=== PATIENT | male | born 1940 | race Caucasian/White ===

== ENCOUNTER 2017-07-21 11:21 | Inpatient (IN) | payer MEDICARE ==
[~2017-07-21] VITALS: Ht 188 cm; Wt 97.7 kg
[~2017-07-21 11:21] MED LIST: ALBU18HF2 IH; ASPI-1265 PO; BISA-77 PO; BUDE10.23 IH; CA C1TAB58 PO; MAG400T PO; METF500T3 PO; MULT-785 PO; NORCO10T PO; PREG75CA30 PO; TIOT18CA7 IH; VITC500T PO; [UNRECOGNIZED DRUG - CODE] PO
[2017-07-21 11:50] LABS: BASOPHILS % (AUTO) 0.3 % (0-1); EOSINOPHILS % (AUTO) 0 % (0-6); HEMATOCRIT 50.4 % (42.0-52.0); HEMOGLOBIN 16.5 g/dl (14.0-17.9); LYMPHOCYTES # (AUTO) 0.9 X10'3 (1.1-4.8); LYMPHOCYTES % (AUTO) 9.6 % (21-51); MEAN CORPUSCULAR HEMOGLOBIN 30.4 PG (27.0-31.0); MEAN CORPUSCULAR HGB CONC 32.7 % (33.0-36.5); MEAN CORPUSCULAR VOLUME 93.1 FL (78-98); MEAN PLATELET VOLUME 8.6 FL (7.4-10.4); MONOCYTES # (AUTO) 1.3 X10'3 (0-0.9); MONOCYTES % (AUTO) 13.6 % (2-12); NEUTROPHILS # (AUTO) 7.3 X10'3 (1.8-7.7); NEUTROPHILS % (AUTO) 76.5 % (42-75); PLATELET COUNT 214 X10'3 (140-440); RED BLOOD COUNT 5.42 X10'6 (4.70-6.10); RED CELL DISTRIBUTION WIDTH 13.7 % (11.5-14.5); WHITE BLOOD COUNT 9.5 X10'3 (4.5-11.0)
[2017-07-21 12:00] LABS: INR 1.2 INR; PARTIAL THROMBOPLASTIN TIME 41 SECONDS (22-32); PROTHROMBIN TIME 11.9 SECONDS (9.0-12.0)
[2017-07-21 12:04] LABS: ALANINE AMINOTRANSFERASE 26 U/L (12-78); ALBUMIN 3.2 G/DL (3.4-5.0); ALBUMIN/GLOBULIN RATIO 0.7 (1.1-1.5); ALKALINE PHOSPHATASE 81 IU/L (46-116); ANION GAP 10 (8-16); ASPARTATE AMINO TRANSFERASE 26 U/L (10-37); BILIRUBIN,TOTAL 0.5 MG/DL (0.1-1.0); BLOOD UREA NITROGEN 24 MG/DL (7-18); BUN/CREATININE RATIO 17.9 (5.4-32.0); CALCIUM 8.9 MG/DL (8.5-10.1); CHLORIDE 101 MMOL/L (99-107); CREATININE 1.34 MG/DL (0.60-1.10); GLUCOSE 124 MG/DL (70-104); POTASSIUM 4.2 MMOL/L (3.5-5.1); SODIUM 139 MMOL/L (135-145); TOTAL CARBON DIOXIDE 27.8 MMOL/L (24-32); TOTAL PROTEIN 7.7 G/DL (6.4-8.2); eGFR 52 ML/MIN
[2017-07-21] MEDS ORDERED: dexamethasone sod phosphate 10mg/ml inj IV STA (12:19)
[2017-07-21] MEDS ORDERED: ipratropium/albuterol 3ml nebule NEB ONE (12:20)
[2017-07-21] MEDS ORDERED: CefTRIAXone 2gm/NS 100ml IVPB 100 ML IV ONE (12:40)
[2017-07-21] MEDS ORDERED: normal saline 1000ML IV soln IV ONE (12:40)
[2017-07-21] MEDS ORDERED: azithromycin 250mg tablet PO ONE (12:40)
[2017-07-21 12:55] LABS: ABG PH (T) 7.403 (7.350-7.450); ALLEN'S TEST Positive; FLOW 5 L/min; PATIENT TEMPERATURE 37.6
[2017-07-21 12:56] LABS: ABG BASE EXCESS 3.3 mmol/L (-2.0-3.0); ABG HCO3 28.8 mmol/L (22.0-26.0); ABG OXYGEN SATURATION 96.7 % (95-98); ABG PCO2 (T) 47.4 mmHg (35.0-48.0); ABG PO2 (T) 90.6 mmHg (83-108); FCOHb 1.1 % (0.5-1.5); FMetHb 0.2 % (0.3-1.12); FO2Hb 95.4 % (94-100); TOTAL HEMOGLOBIN 16.8 G/dl (14.0-18.0)
[2017-07-21] MEDS ORDERED: HYDROcodone/acetaminophen 10/325mg tab PO ONE (15:00)
[2017-07-21] MEDS: normal saline 1000ml 1,000 ML IV SCH (15:12)
[2017-07-21] MEDS ORDERED: potassium Cl 20 mEq SR tablet PO PRN ×2 (15:15)
[2017-07-21] MEDS ORDERED: magnesium Cl slow-release 64mg tablet PO PRN (15:15)
[2017-07-21] MEDS ORDERED: magnesium 2GM in 50ml NS 50 ML IV PRN (15:15)
[2017-07-21] MEDS ORDERED: potassium Cl 40MEQ/NS 500ml 500 ML IV PRN ×2 (15:15)
[2017-07-21] MEDS ORDERED: magnesium hydroxide 30ml (MOM) UD suspension PO PRN (15:15)
[2017-07-21] MEDS ORDERED: acetaminophen 325mg tablet PO PRN ×2 (15:15)
[2017-07-21] MEDS ORDERED: ondansetron/PF 4mg/2ml inj IV PRN (15:15)
[2017-07-21] MEDS ORDERED: mag hydrox/Alum hydrox/simeth 30ml oral suspension PO PRN (15:15)
[2017-07-21] MEDS ORDERED: HYDROcodone/acetaminophen 5mg/325mg tablet PO PRN (15:15)
[2017-07-21] MEDS ORDERED: magnesium 4gm in 100ml NS 100 ML IV PRN (15:15)
[2017-07-21] MEDS ORDERED: HYDROcodone/acetaminophen 10/325mg tab PO PRN (15:20)
[2017-07-21] MEDS ORDERED: non-formulary drug (Albuterol Sulfate (Ventolin Hfa) 2 PUFFS) IH PRN (15:20)
[2017-07-21] MEDS ORDERED: albuterol 2.5 MG/3 ML nebule NEB PRN (15:35)
[2017-07-21 15:37] LABS: MAGNESIUM 2.1 MG/DL (1.5-2.4)
[2017-07-21] MEDS ORDERED: heparin 10,000 units/1 ML INJ IV ONE (15:50)
[2017-07-21] MEDS ORDERED: iohexol 350MG/ML 100ml bottle IV ONE (15:52)
[2017-07-21] MEDS: metFORMIN 500mg tablet PO SCH (17:28)
[2017-07-21 18:00] VITALS: BP 124/59
[2017-07-21] MEDS ORDERED: non-formulary drug (Budesonide/Formoterol Fumarate (Symbicort 160-4.5 Mcg Inhaler) 2 PUFFS IH SCH (20:00)
[2017-07-21] MEDS: amitryptiline 50mg tablet PO SCH (20:25)
[2017-07-21] MEDS: methylPREDNISolone sod succ/PF 40mg inj. IV SCH (20:25)
[2017-07-21] MEDS: ascorbic acid 500mg tablet PO SCH (20:25)
[2017-07-21] MEDS: pregabalin 75mg capsule PO SCH (20:25)
[2017-07-21] MEDS ORDERED: METFORMIN HCL 1000 MG PO SCH (21:00)
[2017-07-21] MEDS: ipratropium 0.5 MG/2.5ML nebule IH SCH (21:08)
[2017-07-21 22:00] VITALS: BP 117/63
[2017-07-21] MEDS: ipratropium/albuterol 3ml nebule NEB SCH (23:37)
[2017-07-22] MEDS: methylPREDNISolone sod succ/PF 40mg inj. IV SCH ×4 (01:55→20:09)
[2017-07-22 02:00] VITALS: BP 111/61
[2017-07-22] MEDS: ipratropium 0.5 MG/2.5ML nebule IH SCH (02:55)
[2017-07-22] MEDS: ipratropium/albuterol 3ml nebule NEB SCH ×6 (02:55→22:35)
[2017-07-22] MEDS: normal saline 1000ml 1,000 ML IV SCH ×3 (03:48→21:12)
[2017-07-22 05:24] LABS: BASOPHILS % (AUTO) 0.1 % (0-1); EOSINOPHILS # (AUTO) 0.1 X10'3 (0-0.9); EOSINOPHILS % (AUTO) 1.2 % (0-6); HEMATOCRIT 44.2 % (42.0-52.0); HEMOGLOBIN 14.4 g/dl (14.0-17.9); LYMPHOCYTES # (AUTO) 0.8 X10'3 (1.1-4.8); LYMPHOCYTES % (AUTO) 10.1 % (21-51); MEAN CORPUSCULAR HEMOGLOBIN 30.6 PG (27.0-31.0); MEAN CORPUSCULAR HGB CONC 32.7 % (33.0-36.5); MEAN CORPUSCULAR VOLUME 93.8 FL (78-98); MEAN PLATELET VOLUME 8.9 FL (7.4-10.4); MONOCYTES # (AUTO) 0.2 X10'3 (0-0.9); MONOCYTES % (AUTO) 2.8 % (2-12); NEUTROPHILS # (AUTO) 6.7 X10'3 (1.8-7.7); NEUTROPHILS % (AUTO) 85.8 % (42-75); PLATELET COUNT 194 X10'3 (140-440); RED BLOOD COUNT 4.71 X10'6 (4.70-6.10); RED CELL DISTRIBUTION WIDTH 13.4 % (11.5-14.5); WHITE BLOOD COUNT 7.8 X10'3 (4.5-11.0)
[2017-07-22 05:38] LABS: ALBUMIN 2.5 G/DL (3.4-5.0); ANION GAP 7 (8-16); BLOOD UREA NITROGEN 23 MG/DL (7-18); BUN/CREATININE RATIO 24.5 (5.4-32.0); CALCIUM 8.2 MG/DL (8.5-10.1); CHLORIDE 105 MMOL/L (99-107); CREATININE 0.94 MG/DL (0.60-1.10); GLUCOSE 151 MG/DL (70-104); MAGNESIUM 2.2 MG/DL (1.5-2.4); POTASSIUM 4.5 MMOL/L (3.5-5.1); SODIUM 142 MMOL/L (135-145); TOTAL CARBON DIOXIDE 29.9 MMOL/L (24-32); eGFR 78 ML/MIN
[2017-07-22] MEDS ORDERED: FLU VACC QS2017-18 36MOS UP/PF 60 MCG/0.5 ML SYRINGE IMVAC ONE (06:15)
[2017-07-22] MEDS: fluticasone/vilanterol 200mcg/25mcg inhaler IH SCH (06:42)
[2017-07-22 07:00] VITALS: BP 116/69
[2017-07-22] MEDS: metFORMIN 500mg tablet PO SCH ×2 (07:49→17:24)
[2017-07-22] MEDS: calcium carbonate/vitamin D3 tablet PO SCH (07:49)
[2017-07-22] MEDS: multivitamins, therapeutics tablet PO SCH (07:49)
[2017-07-22] MEDS: aspirin 81mg tab.chew PO SCH (07:49)
[2017-07-22] MEDS: pregabalin 75mg capsule PO SCH ×3 (07:49→20:08)
[2017-07-22] MEDS: magnesium oxide 400mg tablet PO SCH (07:50)
[2017-07-22] MEDS: bisacodyl 5mg tablet.DR PO SCH (07:50)
[2017-07-22] MEDS: ascorbic acid 500mg tablet PO SCH ×3 (07:50→20:08)
[2017-07-22] MEDS: enoxaparin 40mg/0.4ml syringe SQ SCH (07:51)
[2017-07-22] MEDS: azithromycin/NS 500mg/250ml 250 ML IV SCH (07:52)
[2017-07-22] MEDS ORDERED: CA CITRATE PO SCH (08:00)
[2017-07-22] MEDS ORDERED: VIT D3 PO SCH (08:00)
[2017-07-22] MEDS ORDERED: MGOX PO SCH (08:00)
[2017-07-22] MEDS ORDERED: [UNRECOGNIZED DRUG - OTHER] PO SCH (08:00)
[2017-07-22] MEDS ORDERED: B6 PO SCH (08:00)
[2017-07-22] MEDS ORDERED: non-formulary drug (Tiotropium Bromide* (Spiriva*) 18 MCG) IH SCH (08:00)
[2017-07-22] MEDS: K and/or MAG REPLACEMENT MC SCH (08:00)
[2017-07-22] MEDS: levoFLOXACIN-Levaquin 750MG/D5 150 ML IV SCH (09:03)
[2017-07-22 11:00] VITALS: BP 96/50
[2017-07-22 15:00] VITALS: BP 115/65
[2017-07-22] MEDS: HYDROcodone/acetaminophen 10/325mg tab PO PRN ×2 (16:06→20:08)
[2017-07-22] MEDS ORDERED: dextrose ORAL solution 15 GM/59 ML bottle PO PRN ×2 (16:25)
[2017-07-22] MEDS ORDERED: MESSAGE TO PHARMACY PO ONE (16:25)
[2017-07-22] MEDS ORDERED: glucagon, human recombinant 1mg kit SUBCUT PRN (16:25)
[2017-07-22] MEDS ORDERED: dextrose 50%-water 50ml dispensing syringe IV PRN ×2 (16:25)
[2017-07-22] MEDS ORDERED: insulin Lispro (HumaLOG) vial - multi-dose SQ SCH (16:25)
[2017-07-22] MEDS: lactobacillus rhamnosus 10,000 MMU CELLS/CAPSULE PO SCH (17:10)
[2017-07-22 18:00] VITALS: BP 115/62
[2017-07-22] MEDS: amitryptiline 50mg tablet PO SCH (20:08)
[2017-07-22] MEDS: insulin glargine (Lantus) pen - multi-dose SQ SCH (20:16)
[2017-07-22 22:00] VITALS: BP 123/76
[2017-07-23] MEDS: temazepam 15mg capsule PO PRN ×2 (00:41→23:05)
[2017-07-23] MEDS: methylPREDNISolone sod succ/PF 40mg inj. IV SCH ×4 (01:56→20:32)
[2017-07-23 02:00] VITALS: BP 116/66
[2017-07-23] MEDS: ipratropium/albuterol 3ml nebule NEB SCH ×6 (03:11→23:54)
[2017-07-23 05:39] LABS: BASOPHILS % (AUTO) 0.1 % (0-1); EOSINOPHILS % (AUTO) 0 % (0-6); HEMATOCRIT 40.6 % (42.0-52.0); HEMOGLOBIN 13.3 g/dl (14.0-17.9); LYMPHOCYTES # (AUTO) 1.1 X10'3 (1.1-4.8); LYMPHOCYTES % (AUTO) 5.8 % (21-51); MEAN CORPUSCULAR HEMOGLOBIN 30.9 PG (27.0-31.0); MEAN CORPUSCULAR HGB CONC 32.8 % (33.0-36.5); MONOCYTES # (AUTO) 0.5 X10'3 (0-0.9); MONOCYTES % (AUTO) 2.5 % (2-12); NEUTROPHILS # (AUTO) 16.4 X10'3 (1.8-7.7); NEUTROPHILS % (AUTO) 91.6 % (42-75); PLATELET COUNT 199 X10'3 (140-440); RED BLOOD COUNT 4.32 X10'6 (4.70-6.10); RED CELL DISTRIBUTION WIDTH 13.4 % (11.5-14.5)
[2017-07-23] MEDS: normal saline 1000ml 1,000 ML IV SCH ×2 (05:48→17:27)
[2017-07-23 06:46] LABS: ALBUMIN 2.4 G/DL (3.4-5.0); ANION GAP 5 (8-16); BLOOD UREA NITROGEN 26 MG/DL (7-18); BUN/CREATININE RATIO 28.3 (5.4-32.0); CHLORIDE 107 MMOL/L (99-107); CREATININE 0.92 MG/DL (0.60-1.10); GLUCOSE 141 MG/DL (70-104); MAGNESIUM 2.1 MG/DL (1.5-2.4); POTASSIUM 4.4 MMOL/L (3.5-5.1); SODIUM 142 MMOL/L (135-145); TOTAL CARBON DIOXIDE 29.8 MMOL/L (24-32); eGFR 80 ML/MIN
[2017-07-23 07:00] VITALS: BP 119/67
[2017-07-23] MEDS: fluticasone/vilanterol 200mcg/25mcg inhaler IH SCH (07:09)
[2017-07-23] MEDS: ascorbic acid 500mg tablet PO SCH ×3 (07:23→20:33)
[2017-07-23] MEDS: metFORMIN 500mg tablet PO SCH ×2 (07:23→17:27)
[2017-07-23] MEDS: magnesium oxide 400mg tablet PO SCH (07:23)
[2017-07-23] MEDS: bisacodyl 5mg tablet.DR PO SCH (07:23)
[2017-07-23] MEDS: pregabalin 75mg capsule PO SCH ×3 (07:23→20:33)
[2017-07-23] MEDS: calcium carbonate/vitamin D3 tablet PO SCH (07:23)
[2017-07-23] MEDS: lactobacillus rhamnosus 10,000 MMU CELLS/CAPSULE PO SCH ×2 (07:23→17:30)
[2017-07-23] MEDS: multivitamins, therapeutics tablet PO SCH (07:23)
[2017-07-23] MEDS: aspirin 81mg tab.chew PO SCH (07:24)
[2017-07-23] MEDS: azithromycin/NS 500mg/250ml 250 ML IV SCH (07:25)
[2017-07-23] MEDS: levoFLOXACIN-Levaquin 750MG/D5 150 ML IV SCH ×3 (07:25→09:12)
[2017-07-23] MEDS: enoxaparin 40mg/0.4ml syringe SQ SCH (07:26)
[2017-07-23] MEDS: K and/or MAG REPLACEMENT MC SCH (08:00)
[2017-07-23 11:00] VITALS: BP 105/52
[2017-07-23] MEDS: HYDROcodone/acetaminophen 10/325mg tab PO PRN ×3 (11:10→20:33)
[2017-07-23 15:00] VITALS: BP 123/60
[2017-07-23 18:00] VITALS: BP 116/61
[2017-07-23] MEDS: amitryptiline 50mg tablet PO SCH (20:33)
[2017-07-23] MEDS: insulin glargine (Lantus) pen - multi-dose SQ SCH (21:00)
[2017-07-23 22:00] VITALS: BP 126/71
[2017-07-24 02:00] VITALS: BP 124/71
[2017-07-24] MEDS: ipratropium/albuterol 3ml nebule NEB SCH ×3 (02:42→10:51)
[2017-07-24] MEDS: normal saline 1000ml 1,000 ML IV SCH (04:17)
[2017-07-24] MEDS: HYDROcodone/acetaminophen 10/325mg tab PO PRN ×3 (04:47→15:26)
[2017-07-24 05:30] VITALS: BP 135/75
[2017-07-24 06:24] LABS: ALBUMIN 2.5 G/DL (3.4-5.0); ANION GAP 3 (8-16); BLOOD UREA NITROGEN 24 MG/DL (7-18); CHLORIDE 105 MMOL/L (99-107); CREATININE 0.89 MG/DL (0.60-1.10); GLUCOSE 123 MG/DL (70-104); MAGNESIUM 2.3 MG/DL (1.5-2.4); SODIUM 141 MMOL/L (135-145); TOTAL CARBON DIOXIDE 32.7 MMOL/L (24-32); eGFR 83 ML/MIN
[2017-07-24 06:25] LABS: BASOPHILS % (AUTO) 0 % (0-1); EOSINOPHILS # (AUTO) 0.1 X10'3 (0-0.9); EOSINOPHILS % (AUTO) 0.8 % (0-6); HEMATOCRIT 43.2 % (42.0-52.0); HEMOGLOBIN 14.1 g/dl (14.0-17.9); LYMPHOCYTES # (AUTO) 0.8 X10'3 (1.1-4.8); LYMPHOCYTES % (AUTO) 5.1 % (21-51); MEAN CORPUSCULAR HGB CONC 32.6 % (33.0-36.5); MEAN CORPUSCULAR VOLUME 94.9 FL (78-98); MEAN PLATELET VOLUME 9.2 FL (7.4-10.4); MONOCYTES # (AUTO) 0.3 X10'3 (0-0.9); MONOCYTES % (AUTO) 1.6 % (2-12); NEUTROPHILS # (AUTO) 14.7 X10'3 (1.8-7.7); NEUTROPHILS % (AUTO) 92.5 % (42-75); PLATELET COUNT 203 X10'3 (140-440); RED BLOOD COUNT 4.56 X10'6 (4.70-6.10); RED CELL DISTRIBUTION WIDTH 13.7 % (11.5-14.5); WHITE BLOOD COUNT 15.9 X10'3 (4.5-11.0)
[2017-07-24] MEDS: fluticasone/vilanterol 200mcg/25mcg inhaler IH SCH (07:26)
[2017-07-24] MEDS: metFORMIN 500mg tablet PO SCH (07:58)
[2017-07-24] MEDS: lactobacillus rhamnosus 10,000 MMU CELLS/CAPSULE PO SCH (07:58)
[2017-07-24] MEDS: azithromycin/NS 500mg/250ml 250 ML IV SCH (07:58)
[2017-07-24] MEDS: bisacodyl 5mg tablet.DR PO SCH (07:59)
[2017-07-24] MEDS: aspirin 81mg tab.chew PO SCH (07:59)
[2017-07-24] MEDS: multivitamins, therapeutics tablet PO SCH (08:00)
[2017-07-24] MEDS: pregabalin 75mg capsule PO SCH ×2 (08:00→13:14)
[2017-07-24] MEDS: magnesium oxide 400mg tablet PO SCH (08:00)
[2017-07-24] MEDS: calcium carbonate/vitamin D3 tablet PO SCH (08:00)
[2017-07-24] MEDS: K and/or MAG REPLACEMENT MC SCH (08:00)
[2017-07-24] MEDS: ascorbic acid 500mg tablet PO SCH ×2 (08:01→13:14)
[2017-07-24] MEDS: enoxaparin 40mg/0.4ml syringe SQ SCH (08:03)
[2017-07-24] MEDS ORDERED: predniSONE 20 mg tablet PO SCH (08:30)
[2017-07-24] MEDS: levoFLOXACIN-Levaquin 750MG/D5 150 ML IV SCH ×2 (10:18→10:25)
[2017-07-24 11:00] VITALS: BP 115/58
[2017-07-24 15:00] VITALS: BP 137/72
[2017-07-24] MEDS ORDERED: LEVO750T21 PO (15:20)
[2017-07-24] MEDS ORDERED: PRED20TA PO (15:20)
[2017-07-24] MEDS ORDERED: AZIT500T5 PO (15:20)
== END 2017-07-24 16:55 | disposition home or self-care (01) | DRG 193 ==
LOC: ER 11:22 → ED HOLD 15:12 → PCU 3S 18:00
PROVIDERS: ADMIT Family Medicine; ATTEND Family Medicine
DX: J18.9 Pneumonia, unspecified organism (principal); J96.90 Respiratory failure, unspecified, unspecified whether with hypoxia or hypercapnia; J44.1 Chronic obstructive pulmonary disease with (acute) exacerbation; J44.0 Chronic obstructive pulmonary disease with (acute) lower respiratory infection; E11.9 Type 2 diabetes mellitus without complications; K80.20 Calculus of gallbladder without cholecystitis without obstruction; M54.9 Dorsalgia, unspecified; R91.1 Solitary pulmonary nodule; G89.29 Other chronic pain; N28.9 Disorder of kidney and ureter, unspecified; F17.210 Nicotine dependence, cigarettes, uncomplicated; Z90.49 Acquired absence of other specified parts of digestive tract; Z99.81 Dependence on supplemental oxygen; Z79.84 Long term (current) use of oral hypoglycemic drugs; Z79.51 Long term (current) use of inhaled steroids; Z79.899 Other long term (current) drug therapy; Z79.82 Long term (current) use of aspirin; Z88.0 Allergy status to penicillin; Z88.8 Allergy status to other drugs, medicaments and biological substances; Z91.81 History of falling
CPT/HCPCS: 36415; 36600; 71275; 80048; 80053; 82803; 82948; 83036; 83605; 83735; 83880; 84145; 84484; 85018; 85025; 85379; 85610; 85730; 87040; 87070; 87077; 87185; 93005; 94640; 94760; 96365; 96366; 96375; 97110; 97116; 97162; 97530; 99291; J0456; J0696; J1100; J1644; J1650; J1815; J1956; J2405; J2920; J7030; J7512; Q2037; Q9967

== ENCOUNTER 2017-11-22 21:15 | Inpatient (IN) | payer MEDICARE ==
[~2017-11-22] VITALS: Ht 188 cm; Wt 104.5 kg
[~2017-11-22 21:15] MED LIST changes: +AZIT500T5 PO
[2017-11-22] MEDS ORDERED: azithromycin/NS 500mg/250ml 250 ML IV ONE (21:30)
[2017-11-22] MEDS ORDERED: methylPREDNISolone sod succ 125mg/2ml vial IV ONE (21:30)
[2017-11-22] MEDS ORDERED: albuterol 2.5 MG/3 ML nebule CONTNEB PRN (21:30)
[2017-11-22 22:06] LABS: ABG HCO3 28.1 mmol/L (22.0-26.0); ABG OXYGEN SATURATION 90.3 % (95-98); ABG PCO2 (T) 49.4 mmHg (35.0-48.0); ABG PH (T) 7.383 (7.350-7.450); ABG PO2 (T) 69.4 mmHg (83-108); ALLEN'S TEST Positive; FLOW 3 L/min; FMetHb 0.1 % (0.3-1.12); FO2Hb 89.3 % (94-100); PATIENT TEMPERATURE 39.3; TOTAL HEMOGLOBIN 15.4 G/dl (14.0-18.0)
[2017-11-22 22:23] LABS: BASOPHILS % (AUTO) 0.2 % (0-1); EOSINOPHILS # (AUTO) 0.2 X10'3 (0-0.9); HEMATOCRIT 45.7 % (42.0-52.0); HEMOGLOBIN 15.4 g/dl (14.0-17.9); LYMPHOCYTES # (AUTO) 1.3 X10'3 (1.1-4.8); LYMPHOCYTES % (AUTO) 7.3 % (21-51); MEAN CORPUSCULAR HEMOGLOBIN 31.1 PG (27.0-31.0); MEAN CORPUSCULAR HGB CONC 33.6 % (33.0-36.5); MEAN CORPUSCULAR VOLUME 92.8 FL (78-98); MEAN PLATELET VOLUME 8.5 FL (7.4-10.4); MONOCYTES % (AUTO) 5.8 % (2-12); NEUTROPHILS # (AUTO) 14.8 X10'3 (1.8-7.7); NEUTROPHILS % (AUTO) 85.7 % (42-75); PLATELET COUNT 225 X10'3 (140-440); RED BLOOD COUNT 4.93 X10'6 (4.70-6.10); RED CELL DISTRIBUTION WIDTH 14.1 % (11.5-14.5); WHITE BLOOD COUNT 17.3 X10'3 (4.5-11.0)
[2017-11-22 22:41] LABS: ALANINE AMINOTRANSFERASE 33 U/L (12-78); ALBUMIN 3.7 G/DL (3.4-5.0); ALBUMIN/GLOBULIN RATIO 0.9 (1.1-1.5); ALKALINE PHOSPHATASE 74 IU/L (46-116); ANION GAP 7 (8-16); ASPARTATE AMINO TRANSFERASE 18 U/L (10-37); BILIRUBIN,TOTAL 0.6 MG/DL (0.1-1.0); BLOOD UREA NITROGEN 15 MG/DL (7-18); BUN/CREATININE RATIO 12.2 (5.4-32.0); CALCIUM 9.1 MG/DL (8.5-10.1); CHLORIDE 103 MMOL/L (99-107); CREATININE 1.23 MG/DL (0.60-1.10); GLUCOSE 113 MG/DL (70-104); POTASSIUM 4.5 MMOL/L (3.5-5.1); SODIUM 141 MMOL/L (135-145); TOTAL CARBON DIOXIDE 30.6 MMOL/L (24-32); TOTAL PROTEIN 7.6 G/DL (6.4-8.2); eGFR 57 ML/MIN
[2017-11-22 22:45] LABS: MAGNESIUM 1.9 MG/DL (1.5-2.4)
[2017-11-22] MEDS ORDERED: CefTRIAXone/D5W-Rocephin 1gm 50 ML IV ONE (23:10)
[2017-11-22] MEDS ORDERED: ALBU90AE (23:41)
[2017-11-23] VITALS (7 sets, daily range): BP systolic 113–150; BP diastolic 58–81
[2017-11-23] MEDS ORDERED: HYDROcodone/acetaminophen 10/325mg tab PO ONE
[2017-11-23] MEDS ORDERED: magnesium 2GM in 50ml NS 50 ML IV PRN (00:15)
[2017-11-23] MEDS ORDERED: potassium Cl 40MEQ/NS 500ml 500 ML IV PRN ×2 (00:15)
[2017-11-23] MEDS ORDERED: magnesium 4gm in 100ml NS 100 ML IV PRN (00:15)
[2017-11-23] MEDS ORDERED: magnesium Cl slow-release 64mg tablet PO PRN (00:15)
[2017-11-23] MEDS ORDERED: HYDROcodone/acetaminophen 5mg/325mg tablet PO PRN (00:15)
[2017-11-23] MEDS ORDERED: potassium Cl 20 mEq SR tablet PO PRN ×2 (00:15)
[2017-11-23] MEDS ORDERED: mag hydrox/Alum hydrox/simeth 30ml oral suspension PO PRN (00:15)
[2017-11-23] MEDS ORDERED: magnesium hydroxide 30ml (MOM) UD suspension PO PRN (00:15)
[2017-11-23] MEDS ORDERED: acetaminophen 325mg tablet PO PRN (00:15)
[2017-11-23] MEDS ORDERED: methylPREDNISolone sod succ 125mg/2ml vial IV SCH (02:00)
[2017-11-23] MEDS: albuterol 2.5 MG/3 ML nebule NEB PRN ×2 (03:33→08:06)
[2017-11-23] MEDS: HYDROcodone/acetaminophen 10/325mg tab PO PRN ×4 (05:56→19:32)
[2017-11-23] MEDS: K and/or MAG REPLACEMENT MC SCH (08:00)
[2017-11-23] MEDS: azithromycin 250mg tablet PO SCH (08:12)
[2017-11-23] MEDS: lactobacillus rhamnosus 10,000 MMU CELLS/CAPSULE PO SCH ×2 (08:12→19:30)
[2017-11-23] MEDS: enoxaparin 40mg/0.4ml syringe SUBCUT SCH (08:13)
[2017-11-23] MEDS: CefTRIAXone/D5W-Rocephin 1gm 50 ML IV SCH (08:14)
[2017-11-23 08:21] LABS: BASOPHILS % (AUTO) 0.1 % (0-1); EOSINOPHILS # (AUTO) 0.1 X10'3 (0-0.9); EOSINOPHILS % (AUTO) 0.9 % (0-6); HEMATOCRIT 45.1 % (42.0-52.0); HEMOGLOBIN 15.1 g/dl (14.0-17.9); LYMPHOCYTES # (AUTO) 0.9 X10'3 (1.1-4.8); LYMPHOCYTES % (AUTO) 6.1 % (21-51); MEAN CORPUSCULAR HEMOGLOBIN 31.4 PG (27.0-31.0); MEAN CORPUSCULAR HGB CONC 33.6 % (33.0-36.5); MEAN CORPUSCULAR VOLUME 93.5 FL (78-98); MEAN PLATELET VOLUME 8.5 FL (7.4-10.4); MONOCYTES # (AUTO) 0.1 X10'3 (0-0.9); MONOCYTES % (AUTO) 0.4 % (2-12); NEUTROPHILS # (AUTO) 14.2 X10'3 (1.8-7.7); NEUTROPHILS % (AUTO) 92.5 % (42-75); PLATELET COUNT 229 X10'3 (140-440); RED BLOOD COUNT 4.82 X10'6 (4.70-6.10); WHITE BLOOD COUNT 15.3 X10'3 (4.5-11.0)
[2017-11-23 08:26] LABS: ALBUMIN 3.5 G/DL (3.4-5.0); ANION GAP 7 (8-16); BLOOD UREA NITROGEN 18 MG/DL (7-18); CALCIUM 9.2 MG/DL (8.5-10.1); CHLORIDE 103 MMOL/L (99-107); GLUCOSE 161 MG/DL (70-104); POTASSIUM 4.3 MMOL/L (3.5-5.1); SODIUM 142 MMOL/L (135-145); TOTAL CARBON DIOXIDE 31.8 MMOL/L (24-32); eGFR 59 ML/MIN
[2017-11-23] MEDS: ipratropium/albuterol 3ml nebule NEB SCH ×4 (11:03→22:49)
[2017-11-23] MEDS: guaiFENesin 200 MG/10 ML oral syrup UD cup PO SCH ×2 (14:46→19:30)
[2017-11-23] MEDS: methylPREDNISolone sod succ 125mg/2ml vial IV SCH (16:37)
[2017-11-24] MEDS: methylPREDNISolone sod succ 125mg/2ml vial IV SCH ×3 (00:05→20:09)
[2017-11-24] MEDS: guaiFENesin 200 MG/10 ML oral syrup UD cup PO SCH ×4 (02:00→20:00)
[2017-11-24 03:00] VITALS: BP 149/78
[2017-11-24] MEDS: ipratropium/albuterol 3ml nebule NEB SCH ×6 (03:36→23:15)
[2017-11-24] MEDS: HYDROcodone/acetaminophen 10/325mg tab PO PRN ×2 (05:00→17:36)
[2017-11-24 05:11] LABS: BASOPHILS % (AUTO) 0.1 % (0-1); EOSINOPHILS # (AUTO) 0.1 X10'3 (0-0.9); EOSINOPHILS % (AUTO) 0.7 % (0-6); HEMATOCRIT 43.3 % (42.0-52.0); HEMOGLOBIN 14.3 g/dl (14.0-17.9); LYMPHOCYTES # (AUTO) 0.9 X10'3 (1.1-4.8); LYMPHOCYTES % (AUTO) 4.2 % (21-51); MEAN CORPUSCULAR HEMOGLOBIN 31.1 PG (27.0-31.0); MEAN CORPUSCULAR HGB CONC 33.1 % (33.0-36.5); MEAN CORPUSCULAR VOLUME 94.2 FL (78-98); MEAN PLATELET VOLUME 8.7 FL (7.4-10.4); MONOCYTES # (AUTO) 0.3 X10'3 (0-0.9); MONOCYTES % (AUTO) 1.2 % (2-12); NEUTROPHILS # (AUTO) 19.3 X10'3 (1.8-7.7); NEUTROPHILS % (AUTO) 93.8 % (42-75); PLATELET COUNT 228 X10'3 (140-440); RED BLOOD COUNT 4.59 X10'6 (4.70-6.10); RED CELL DISTRIBUTION WIDTH 14.2 % (11.5-14.5); WHITE BLOOD COUNT 20.6 X10'3 (4.5-11.0)
[2017-11-24 05:30] LABS: ALANINE AMINOTRANSFERASE 25 U/L (12-78); ALBUMIN/GLOBULIN RATIO 0.8 (1.1-1.5); ALKALINE PHOSPHATASE 69 IU/L (46-116); ANION GAP 8 (8-16); ASPARTATE AMINO TRANSFERASE 13 U/L (10-37); BILIRUBIN,TOTAL 0.3 MG/DL (0.1-1.0); BLOOD UREA NITROGEN 27 MG/DL (7-18); BUN/CREATININE RATIO 25.2 (5.4-32.0); CALCIUM 9.2 MG/DL (8.5-10.1); CHLORIDE 106 MMOL/L (99-107); CREATININE 1.07 MG/DL (0.60-1.10); GLUCOSE 180 MG/DL (70-104); MAGNESIUM 2.4 MG/DL (1.5-2.4); PHOSPHORUS 2.5 MG/DL (2.3-4.5); SODIUM 143 MMOL/L (135-145); TOTAL CARBON DIOXIDE 29.3 MMOL/L (24-32); TOTAL PROTEIN 6.8 G/DL (6.4-8.2); eGFR 67 ML/MIN
[2017-11-24 07:00] VITALS: BP 147/67
[2017-11-24] MEDS: azithromycin 250mg tablet PO SCH (07:34)
[2017-11-24] MEDS: lactobacillus rhamnosus 10,000 MMU CELLS/CAPSULE PO SCH ×2 (07:34→20:00)
[2017-11-24] MEDS: CefTRIAXone/D5W-Rocephin 1gm 50 ML IV SCH (07:35)
[2017-11-24] MEDS: enoxaparin 40mg/0.4ml syringe SUBCUT SCH (07:35)
[2017-11-24] MEDS: K and/or MAG REPLACEMENT MC SCH (08:00)
[2017-11-24] MEDS: pantoprazole 40mg Tablet.DR PO SCH (08:00)
[2017-11-24 11:00] VITALS: BP 142/64
[2017-11-24] MEDS: ondansetron/PF 4mg/2ml inj IV PRN ×2 (12:14→18:58)
[2017-11-24] MEDS ORDERED: metoclopramide 5 mg/ml inj IV ONE (14:45)
[2017-11-24 15:00] VITALS: BP 133/64
[2017-11-24 19:00] VITALS: BP 153/82
[2017-11-24] MEDS ORDERED: ondansetron/PF 4mg/2ml inj IM ONE (20:00)
[2017-11-24] MEDS: metoclopramide 5 mg/ml inj IV PRN (20:58)
[2017-11-24 22:00] VITALS: BP 158/80
[2017-11-25] MEDS: guaiFENesin 200 MG/10 ML oral syrup UD cup PO SCH ×3 (01:50→14:02)
[2017-11-25 02:00] VITALS: BP 176/89
[2017-11-25] MEDS: ipratropium/albuterol 3ml nebule NEB SCH ×3 (03:00→11:52)
[2017-11-25] MEDS: metoclopramide 5 mg/ml inj IV PRN (03:26)
[2017-11-25 05:18] LABS: BASOPHILS % (AUTO) 0 % (0-1); EOSINOPHILS % (AUTO) 0.1 % (0-6); HEMATOCRIT 42.3 % (42.0-52.0); HEMOGLOBIN 14.1 g/dl (14.0-17.9); LYMPHOCYTES # (AUTO) 0.7 X10'3 (1.1-4.8); LYMPHOCYTES % (AUTO) 3.7 % (21-51); MEAN CORPUSCULAR HEMOGLOBIN 31.5 PG (27.0-31.0); MEAN CORPUSCULAR HGB CONC 33.2 % (33.0-36.5); MEAN CORPUSCULAR VOLUME 94.7 FL (78-98); MEAN PLATELET VOLUME 9.2 FL (7.4-10.4); MONOCYTES # (AUTO) 0.5 X10'3 (0-0.9); MONOCYTES % (AUTO) 2.6 % (2-12); NEUTROPHILS % (AUTO) 93.6 % (42-75); PLATELET COUNT 252 X10'3 (140-440); RED BLOOD COUNT 4.47 X10'6 (4.70-6.10); RED CELL DISTRIBUTION WIDTH 14.1 % (11.5-14.5); WHITE BLOOD COUNT 18.2 X10'3 (4.5-11.0)
[2017-11-25 05:49] LABS: ALANINE AMINOTRANSFERASE 25 U/L (12-78); ALBUMIN 2.9 G/DL (3.4-5.0); ALBUMIN/GLOBULIN RATIO 0.8 (1.1-1.5); ALKALINE PHOSPHATASE 61 IU/L (46-116); ANION GAP 7 (8-16); ASPARTATE AMINO TRANSFERASE 13 U/L (10-37); BILIRUBIN,TOTAL 0.2 MG/DL (0.1-1.0); BLOOD UREA NITROGEN 31 MG/DL (7-18); BUN/CREATININE RATIO 26.5 (5.4-32.0); CHLORIDE 105 MMOL/L (99-107); CREATININE 1.17 MG/DL (0.60-1.10); GLUCOSE 187 MG/DL (70-104); MAGNESIUM 2.2 MG/DL (1.5-2.4); PHOSPHORUS 3.3 MG/DL (2.3-4.5); POTASSIUM 4.2 MMOL/L (3.5-5.1); SODIUM 144 MMOL/L (135-145); TOTAL CARBON DIOXIDE 32.5 MMOL/L (24-32); TOTAL PROTEIN 6.4 G/DL (6.4-8.2); eGFR 61 ML/MIN
[2017-11-25] MEDS: K and/or MAG REPLACEMENT MC SCH (06:27)
[2017-11-25] MEDS: HYDROcodone/acetaminophen 10/325mg tab PO PRN (06:48)
[2017-11-25 06:55] VITALS: BP 134/72
[2017-11-25] MEDS: pantoprazole 40mg Tablet.DR PO SCH (08:05)
[2017-11-25] MEDS: enoxaparin 40mg/0.4ml syringe SUBCUT SCH (08:05)
[2017-11-25] MEDS: lactobacillus rhamnosus 10,000 MMU CELLS/CAPSULE PO SCH (08:06)
[2017-11-25] MEDS: methylPREDNISolone sod succ 125mg/2ml vial IV SCH (08:06)
[2017-11-25] MEDS: CefTRIAXone/D5W-Rocephin 1gm 50 ML IV SCH (08:06)
[2017-11-25] MEDS: azithromycin 250mg tablet PO SCH (08:06)
[2017-11-25 11:36] VITALS: BP 133/70
[2017-11-25] MEDS ORDERED: GUAI100L97 PO (12:31)
[2017-11-25] MEDS ORDERED: PRED10TA23 PO (12:31)
[2017-11-25] MEDS ORDERED: AZI25OT PO (12:31)
== END 2017-11-25 15:10 | disposition home or self-care (01) | DRG 871 ==
LOC: ER 21:16 → PCU 3S 11-23 00:14
PROVIDERS: ADMIT Internal Medicine; ATTEND Family Medicine
PROC: 5A09357 Assistance with Respiratory Ventilation, Less than 24 Consecutive Hours, Continuous Positive Airway Pressure (ICD-10-PCS; principal; 2017-11-23)
PROC: 5A09357 Assistance with Respiratory Ventilation, Less than 24 Consecutive Hours, Continuous Positive Airway Pressure (ICD-10-PCS; 2017-11-24)
DX: A41.9 Sepsis, unspecified organism (principal); J18.1 Lobar pneumonia, unspecified organism; J96.21 Acute and chronic respiratory failure with hypoxia; J96.22 Acute and chronic respiratory failure with hypercapnia; J44.0 Chronic obstructive pulmonary disease with (acute) lower respiratory infection; J44.1 Chronic obstructive pulmonary disease with (acute) exacerbation; E66.01 Morbid (severe) obesity due to excess calories; M54.9 Dorsalgia, unspecified; G89.29 Other chronic pain; F17.210 Nicotine dependence, cigarettes, uncomplicated; Z90.49 Acquired absence of other specified parts of digestive tract; Z99.81 Dependence on supplemental oxygen; Z88.0 Allergy status to penicillin; Z88.8 Allergy status to other drugs, medicaments and biological substances; Z79.899 Other long term (current) drug therapy; Z79.82 Long term (current) use of aspirin; Z68.29 Body mass index [BMI] 29.0-29.9, adult
CPT/HCPCS: 36415; 36600; 71045; 80048; 80053; 82803; 83605; 83735; 83880; 84100; 85018; 85025; 87040; 87070; 93005; 94640; 94660; 94760; 96365; 96367; 97162; 97530; 99291; A4620; A6213; J0456; J0696; J1650; J2405; J2765; J2930; J7030

== ENCOUNTER 2018-11-24 10:00 | Emergency (ER) | payer MEDICARE ==
[~2018-11-24] VITALS: Ht 188 cm; Wt 95.5 kg
[~2018-11-24 10:00] MED LIST changes: -ALBU18HF2 IH; +ALBU90AE; +AZI25OT PO; -AZIT500T5 PO; +GUAI100L97 PO; -PREG75CA30 PO
[2018-11-24] MEDS ORDERED: THIO300C PO (10:32)
[2018-11-24] MEDS ORDERED: PRED10TA PO (10:32)
[2018-11-24] MEDS ORDERED: TIOT18CA3 PO (10:33)
[2018-11-24] MEDS ORDERED: ipratropium/albuterol 3ml nebule NEB ONE (10:35)
[2018-11-24] MEDS ORDERED: methylPREDNISolone sod succ 125mg/2ml vial IV ONE (10:35)
[2018-11-24 11:00] LABS: BASOPHILS % (AUTO) 0.1 % (0-1); EOSINOPHILS % (AUTO) 0.3 % (0-6); HEMATOCRIT 48.3 % (42.0-52.0); HEMOGLOBIN 15.7 g/dl (14.0-17.9); LYMPHOCYTES % (AUTO) 10.3 % (21-51); MEAN CORPUSCULAR HEMOGLOBIN 29.7 PG (27.0-31.0); MEAN CORPUSCULAR HGB CONC 32.4 g/dL (33.0-36.5); MEAN CORPUSCULAR VOLUME 91.7 FL (78-98); MEAN PLATELET VOLUME 8.9 FL (7.4-10.4); MONOCYTES # (AUTO) 0.4 X10'3 (0-0.9); MONOCYTES % (AUTO) 4.6 % (2-12); NEUTROPHILS # (AUTO) 8.2 X10'3 (1.8-7.7); NEUTROPHILS % (AUTO) 84.7 % (42-75); PLATELET COUNT 250 X10'3 (140-440); RED BLOOD COUNT 5.27 X10'6 (4.70-6.10); RED CELL DISTRIBUTION WIDTH 15.2 % (11.5-14.5); WHITE BLOOD COUNT 9.6 X10'3 (4.5-11.0)
[2018-11-24 11:23] LABS: ALANINE AMINOTRANSFERASE 30 U/L (12-78); ALBUMIN 3.4 G/DL (3.4-5.0); ALBUMIN/GLOBULIN RATIO 0.9 (1.1-1.5); ALKALINE PHOSPHATASE 77 IU/L (46-116); ANION GAP 7 (8-16); ASPARTATE AMINO TRANSFERASE 16 U/L (10-37); BILIRUBIN,TOTAL 0.3 MG/DL (0.1-1.0); BLOOD UREA NITROGEN 15 MG/DL (7-18); BUN/CREATININE RATIO 13.8 (5.4-32.0); CALCIUM 9.1 MG/DL (8.5-10.1); CHLORIDE 103 MMOL/L (99-107); CREATININE 1.09 MG/DL (0.60-1.10); GLUCOSE 138 MG/DL (70-104); POTASSIUM 4.1 MMOL/L (3.5-5.1); SODIUM 141 MMOL/L (135-145); TOTAL PROTEIN 7.1 G/DL (6.4-8.2); eGFR 66 ML/MIN
[2018-11-24] MEDS ORDERED: CLAR500T PO (12:18)
[2018-11-24] MEDS ORDERED: IPRA3AMP9 IH (12:18)
[2018-11-24] MEDS ORDERED: PRED10TA23 PO (12:18)
[2018-11-24 12:32] VITALS: BP 111/58
== END 2018-11-24 12:47 | disposition home or self-care (01) ==
LOC: ER 10:01
DX: J44.1 Chronic obstructive pulmonary disease with (acute) exacerbation (principal); G89.29 Other chronic pain; Z90.49 Acquired absence of other specified parts of digestive tract; Z90.89 Acquired absence of other organs; Z98.890 Other specified postprocedural states; Z88.0 Allergy status to penicillin; Z88.8 Allergy status to other drugs, medicaments and biological substances; Z79.82 Long term (current) use of aspirin; Z79.899 Other long term (current) drug therapy
CPT/HCPCS: 36415; 71046; 80053; 83605; 84484; 85025; 87040; 93005; 94640; 96374; 99284; J2930; 96365

== ENCOUNTER 2021-05-31 04:11 | Emergency (ER) | payer MEDICARE ==
[~2021-05-31] VITALS: Ht 188 cm; Wt 109.1 kg
[~2021-05-31 04:11] MED LIST changes: +ALBU8.5H17 IH; -ALBU90AE; -AZI25OT PO; -BISA-77 PO; +FURO-150 PO; -GUAI100L97 PO; +IPRA3AMP9 NEB; -MAG400T PO; -METF500T3 PO; +POLY119P2 PO; +PRED20TA PO; +THIO300C PO; -TIOT18CA7 IH
[2021-05-31] MEDS ORDERED: albuterol 2.5 MG/3 ML nebule NEB ONE (04:25)
[2021-05-31 04:41] LABS: BASOPHILS # (AUTO) 0.1 X10'3 (0-0.2); BASOPHILS % (AUTO) 1.2 % (0-1); EOSINOPHILS # (AUTO) 0.3 X10'3 (0-0.9); EOSINOPHILS % (AUTO) 3.7 % (0-6); HEMATOCRIT 42.7 % (42.0-52.0); HEMOGLOBIN 14.1 g/dl (14.0-17.9); LYMPHOCYTES # (AUTO) 2.3 X10'3 (1.1-4.8); LYMPHOCYTES % (AUTO) 26.5 % (21-51); MEAN CORPUSCULAR HEMOGLOBIN 29.9 PG (27.0-31.0); MEAN CORPUSCULAR HGB CONC 33.1 g/dL (33.0-36.5); MEAN CORPUSCULAR VOLUME 90.4 FL (78-98); MEAN PLATELET VOLUME 8.3 FL (7.4-10.4); MONOCYTES # (AUTO) 0.7 X10'3 (0-0.9); MONOCYTES % (AUTO) 7.6 % (2-12); NEUTROPHILS # (AUTO) 5.4 X10'3 (1.8-7.7); PLATELET COUNT 257 X10'3 (140-440); RED BLOOD COUNT 4.72 X10'6 (4.70-6.10); RED CELL DISTRIBUTION WIDTH 14.8 % (11.5-14.5); WHITE BLOOD COUNT 8.8 X10'3 (4.5-11.0)
[2021-05-31 04:59] LABS: ALBUMIN 3.2 G/DL (3.4-5.0); ANION GAP 8 (8-16); BLOOD UREA NITROGEN 14 MG/DL (7-18); BUN/CREATININE RATIO 12.8 (5.4-32.0); CALCIUM 8.7 MG/DL (8.5-10.1); CHLORIDE 107 MMOL/L (99-107); CREATININE 1.09 MG/DL (0.60-1.10); GLUCOSE 133 MG/DL (70-104); POTASSIUM 4.2 MMOL/L (3.5-5.1); SODIUM 143 MMOL/L (135-145); TOTAL CARBON DIOXIDE 28.1 MMOL/L (24-32); eGFR 65 ML/MIN
[2021-05-31] MEDS ORDERED: ciprofloxacin lact 400MG/200ML 200 ML IV STA (06:33)
[2021-05-31] MEDS ORDERED: CIPR750T14 PO (06:50)
[2021-05-31 07:32] VITALS: BP 114/64
[2021-05-31] MEDS ORDERED: albuterol 2.5 MG/3 ML nebule ONE (08:38)
--- NOTE | 2021-05-31 11:23 | NUR ---
Asked by ER staff to arrange for a travel O2 tank so pt can get to his home in [place]. Per spouse, they work w/ [employer]. Called the company and spoke w/ Lauryn. All of their techs are currently out on other calls but if the can come get it they will have a tank waiting for her at the help desk support specialist. Called pt's SEVERIANO Leonardo back and provided her w/ the details how to get the tank. Continue to monitor.
== END 2021-05-31 12:29 | disposition home or self-care (01) ==
LOC: ER 04:12
DX: J18.9 Pneumonia, unspecified organism (principal); R06.02 Shortness of breath; R05.9 Cough, unspecified; R53.83 Other fatigue; J43.9 Emphysema, unspecified; G89.29 Other chronic pain; Z90.89 Acquired absence of other organs; Z98.890 Other specified postprocedural states; Z88.0 Allergy status to penicillin; Z88.8 Allergy status to other drugs, medicaments and biological substances; Z79.82 Long term (current) use of aspirin; Z79.2 Long term (current) use of antibiotics; Z79.899 Other long term (current) drug therapy
CPT/HCPCS: 36415; 71045; 80048; 83880; 84484; 85025; 93005; 94640; 96374; 99285; J0744; 94760